=== PATIENT | female | born 1960 | race Asian ===

== ENCOUNTER 2024-11-21 16:49 | Emergency (ER) | payer MEDICAID ==
[~2024-11-21] VITALS: Ht 165.1 cm; Wt 62.0 kg
[2024-11-21 16:50] VITALS: O2SAT 98
[2024-11-21 16:54] VITALS: TEMP 36.6; O2SAT 99
[2024-11-21 18:05] VITALS: BP 163/75; PULSE 89; RESP 16
[2024-11-21] MEDS: IBUPROFEN 600MG TABLET PO ONE (18:05)
== END 2024-11-21 19:03 | disposition home or self-care (01) ==
LOC: ER 16:49
DX: S92.351A Displaced fracture of fifth metatarsal bone, right foot, initial encounter for closed fracture (principal); E11.9 Type 2 diabetes mellitus without complications; Z79.899 Other long term (current) drug therapy; W01.0XXA Fall on same level from slipping, tripping and stumbling without subsequent striking against object, initial encounter; Y93.01 Activity, walking, marching and hiking; Y92.89 Other specified places as the place of occurrence of the external cause; Y99.8 Other external cause status
CPT/HCPCS: 29515; 73590; 73610; 73630; 99284